=== PATIENT | male | born 1990 | race Caucasian/White ===

== ENCOUNTER 2020-07-21 23:57 | Emergency (ER) | payer MEDICAID ==
[~2020-07-21] VITALS: Ht 188 cm; Wt 95.1 kg
[2020-07-22 00:03] VITALS: BP 130/72
== END 2020-07-22 01:26 | disposition left against medical advice (07) ==
LOC: ER 23:57
DX: M79.674 Pain in right toe(s) (principal); Z53.21 Procedure and treatment not carried out due to patient leaving prior to being seen by health care provider